=== PATIENT | male | born 1945 | race Caucasian/White ===

== ENCOUNTER → 2018-01-27 09:36 | Outpatient (CLI) | payer MEDICARE, OTHER, SELFPAY | PROVIDERS: PCP Family Medicine; Visit Provider Urology | DX: R68.89 Other general symptoms and signs (principal); Z12.5 Encounter for screening for malignant neoplasm of prostate | CPT/HCPCS: 36415; 84153 ==

== ENCOUNTER → 2018-10-27 09:23 | Outpatient (CLI) | payer MEDICARE, OTHER, SELFPAY ==
[2018-10-27 10:37] LABS: Add Manual Diff / Slide Review NO; Basophils Absolute Auto 0 /uL (0-100); Basophils Percent Auto 0.3 % (0-2); Eosinophils Absolute Auto 100 /uL (0-450); Eosinophils Percent Auto 1.3 % (2-4); Hematocrit 45.6 % (41-53); Lymphocytes Absolute Auto 1700 /uL (1100-4500); Lymphocytes Percent Auto 17.8 % (25-40); Mean Corpuscular HGB Conc 32.9 % (30-36); Mean Corpuscular Hemoglobin 29.9 PG (26-34); Mean Corpuscular Volume 90.9 fL (80-100); Monocytes Absolute Auto 800 /uL (0-900); Monocytes Percent Auto 8.2 % (3-14); Neutrophils Absolute Auto 6800 /uL (1500-7000); Neutrophils Percent Auto 72.4 % (50-75); Platelet Count 206 X10^3/uL (150-400); Red Blood Cell Count 5.02 X10^6/uL (4.5-5.9); Red Cell Distribution Width 13.3 % (11.6-14.8); White Blood Cell Count 9.3 X10^3/uL (4.5-11.0)
[2018-10-27 11:23] LABS: Alanine Aminotransferase 15 IU/L (21-72); Albumin 4.2 g/dL (3.5-5.0); Albumin Globulin Ratio 1.2 (1.0-2.8); Alkaline Phosphatase 79 U/L (38-126); Aspartate Aminotransferase 21 IU/L (17-59); BUN Creatinine Ratio 18.8 (6-22); Bilirubin Total 0.6 mg/dL (0.2-1.3); Blood Urea Nitrogen 15 mg/dL (9-20); Calcium 9.3 mg/dL (8.4-10.2); Carbon Dioxide 29 mmol/L (22-32); Chloride 100 mmol/L (98-107); Cholesterol 234 mg/dL (140-199); Estimated Glomerular Filt Rate > 60.0 mL/min (>60); Globulin 3.4 g/dL (1.7-4.1); Glucose 90 mg/dL (80-110); HDL Cholesterol 48 mg/dL (40-60); HEMOLYSIS < 15 (0-50); LDL Cholesterol Calculated 156 mg/dL (<100); Potassium 4.1 mmol/L (3.4-5.1); Sodium 139 mmol/L (137-145); Total Protein 7.6 g/dL (6.3-8.2); Triglycerides 149 mg/dL (35-150)
[2018-10-27 11:52] LABS: Thyroid Stimulating Hormone 4.44 uIU/mL (0.47-4.68)
== END ==
PROVIDERS: PCP Family Medicine; Visit Provider Internal Medicine Cardiovascular Disease
DX: I48.91 Unspecified atrial fibrillation (principal)
CPT/HCPCS: 36415; 80053; 80061; 84443; 85025

== ENCOUNTER → 2019-02-16 09:41 | Outpatient (CLI) | payer MEDICARE, OTHER, SELFPAY ==
[2019-02-16 11:16] LABS: Prostate Specific Antigen 5.29 ng/mL (0.10-4.00)
== END ==
PROVIDERS: PCP Family Medicine; Visit Provider Urology
DX: R97.20 Elevated prostate specific antigen [PSA] (principal)
CPT/HCPCS: 36415; 84153

== ENCOUNTER → 2019-08-21 12:36 | Outpatient (CLI) | payer MEDICARE, OTHER, SELFPAY ==
[2019-08-21 14:16] LABS: Add Manual Diff / Slide Review NO; Basophils Absolute Auto 0 /uL (0-100); Basophils Percent Auto 0.6 % (0-2); Eosinophils Absolute Auto 100 /uL (0-450); Eosinophils Percent Auto 1.5 % (2-4); Hematocrit 46.7 % (41-53); Hemoglobin 15.7 g/dL (13.5-17.5); Lymphocytes Absolute Auto 1800 /uL (1100-4500); Lymphocytes Percent Auto 23.6 % (25-40); Mean Corpuscular HGB Conc 33.6 % (30-36); Mean Corpuscular Hemoglobin 30.4 PG (26-34); Mean Corpuscular Volume 90.4 fL (80-100); Monocytes Absolute Auto 500 /uL (0-900); Monocytes Percent Auto 6.2 % (3-14); Neutrophils Absolute Auto 5200 /uL (1500-7000); Neutrophils Percent Auto 68.1 % (50-75); Platelet Count 223 X10^3/uL (150-400); Red Blood Cell Count 5.16 X10^6/uL (4.5-5.9); Red Cell Distribution Width 13.3 % (11.6-14.8); White Blood Cell Count 7.6 X10^3/uL (4.5-11.0)
[2019-08-21 14:28] LABS: Alanine Aminotransferase 14 IU/L (<50); Albumin 4.2 g/dL (3.5-5.0); Albumin Globulin Ratio 1.2 (1.0-2.8); Alkaline Phosphatase 84 U/L (38-126); Aspartate Aminotransferase 23 IU/L (17-59); BUN Creatinine Ratio 16.7 (6-22); Bilirubin Total 0.5 mg/dL (0.2-1.3); Blood Urea Nitrogen 15 mg/dL (9-20); Calcium 9.8 mg/dL (8.4-10.2); Carbon Dioxide 30 mmol/L (22-32); Chloride 101 mmol/L (98-107); Estimated Glomerular Filt Rate > 60.0 mL/min (>60); Globulin 3.4 g/dL (1.7-4.1); Glucose 97 mg/dL (80-110); HEMOLYSIS < 15 (0-50); Potassium 4.3 mmol/L (3.4-5.1); Sodium 140 mmol/L (137-145); Total Protein 7.6 g/dL (6.3-8.2)
== END ==
PROVIDERS: PCP Family Medicine; Referring Provider Internal Medicine Cardiovascular Disease; Visit Provider Internal Medicine Cardiovascular Disease
DX: I48.21 Permanent atrial fibrillation (principal)
CPT/HCPCS: 36415; 80053; 85025

== ENCOUNTER → 2020-10-29 10:30 | Outpatient (CLI) | payer MEDICARE, OTHER, SELFPAY ==
[2020-10-29 11:04] LABS: Add Manual Diff / Slide Review NO; Basophils Absolute Auto 0 /uL (0-100); Basophils Percent Auto 0.4 % (0-2); Eosinophils Absolute Auto 200 /uL (0-450); Hematocrit 44.8 % (41-53); Hemoglobin 15.1 g/dL (13.5-17.5); Lymphocytes Absolute Auto 1800 /uL (1100-4500); Lymphocytes Percent Auto 21.4 % (25-40); Mean Corpuscular HGB Conc 33.8 % (30-36); Mean Corpuscular Volume 91.8 fL (80-100); Monocytes Absolute Auto 600 /uL (0-900); Monocytes Percent Auto 7.8 % (3-14); Neutrophils Absolute Auto 5600 /uL (1500-7000); Neutrophils Percent Auto 68.4 % (50-75); Platelet Count 195 X10^3/uL (150-400); Red Blood Cell Count 4.88 X10^6/uL (4.5-5.9); White Blood Cell Count 8.2 X10^3/uL (4.5-11.0)
[2020-10-29 11:25] LABS: Alanine Aminotransferase 14 IU/L (<50); Albumin 3.8 g/dL (3.5-5.0); Albumin Globulin Ratio 1.2 (1.0-2.8); Alkaline Phosphatase 79 U/L (38-126); Aspartate Aminotransferase 23 IU/L (17-59); BUN Creatinine Ratio 23.4 (6-22); Bilirubin Total 0.4 mg/dL (0.2-1.3); Blood Urea Nitrogen 18 mg/dL (9-20); Calcium 9.5 mg/dL (8.4-10.2); Carbon Dioxide 30 mmol/L (22-32); Chloride 102 mmol/L (98-107); Estimated Glomerular Filt Rate > 60.0 mL/min (>60); Globulin 3.2 g/dL (1.7-4.1); Glucose 93 mg/dL (80-110); HEMOLYSIS < 15 (0-50); Potassium 4.3 mmol/L (3.4-5.1); Sodium 137 mmol/L (137-145)
== END ==
PROVIDERS: PCP Internal Medicine; Referring Provider Internal Medicine Cardiovascular Disease; Visit Provider Internal Medicine Cardiovascular Disease
DX: I48.21 Permanent atrial fibrillation (principal)
CPT/HCPCS: 36415; 80053; 85025

== ENCOUNTER → 2021-04-09 12:50 | Outpatient (CLI) | payer MEDICARE, OTHER, SELFPAY ==
--- NOTE | 2021-04-09 | DI.RAD.S_ITS ---
PROCEDURE: XR CHEST 2V INDICATIONS: SHORTNESS OF BREATH TECHNIQUE: 2 views of the chest were acquired. COMPARISON: None. FINDINGS: Surgical changes and devices: None. Lungs and pleura: No consolidation, pleural effusions or pneumothorax. Reduced lung volumes with prominence of the bronchovascular markings. Mediastinum: Mediastinal contours are normal. Heart size is normal. Bones and chest wall: No suspicious bony abnormalities. Soft tissues appear unremarkable. IMPRESSION: No acute cardiopulmonary abnormality. Dictated by: Lucas Genao M.D. on 04/09/2021 at 13:51 Approved by: Lucas Genao M.D. on 04/09/2021 at 13:51
== END ==
PROVIDERS: PCP Internal Medicine; Referring Provider Internal Medicine; Visit Provider Internal Medicine
DX: R06.02 Shortness of breath (principal)
CPT/HCPCS: 71046

== ENCOUNTER → 2021-04-10 07:29 | Outpatient (CLI) | payer MEDICARE, OTHER, SELFPAY ==
--- NOTE | 2021-04-10 | DI.ECHO.S_ITS ---
[place] [facility] +---------+ : : [address] : [address] : : : : [id number] : : : : Phone: [phone] Echocardiogram Report + + :Name: JAYY STEWART Study Date: 04/10/2021 Height: 70 in : :[facility] ReadingLocation: Weight: 190 lb : : Gender: Male BSA: 2.0 m2 : :: 1945 Age: 75 yrs BP: 141/67 mmHg: :Reason For Study: CARDIOMYOPATHY : :Ordering Physician: GINGER : :CAR Performed By: Maru Reyes : :Referring: CAR MILES : + + Interpretation Summary The left ventricle is normal in size and wall thickness. Left ventricular systolic function appears normal without focal wall motion abnormalities. The ejection fraction is estimated to be 55-60%. Diastolic function could not be accurately assessed due to atrial fibrillation. The right ventricle is mildly dilated. Right ventricular systolic function is at the lower limits of normal. Right ventricular systolic pressure is estimated to be 28 mmHg plus the clinically estimated CVP which cannot be estimated on this exam. The left atrium is severely dilated. The right atrium is mild to moderately dilated. There is moderate mitral regurgitation. There is mild tricuspid regurgitation. The ascending aorta is mildly enlarged. Procedure: A two-dimensional transthoracic echocardiogram with color flow and Doppler was performed. The study quality was technically adequate. There is no prior echocardiogram noted for this patient. The patient was in atrial fibrillation with heart rates between 54-76 bpm during the exam. Left Ventricle: The left ventricle is normal in size and wall thickness. Left ventricular systolic function appears normal without focal wall motion abnormalities. The ejection fraction is estimated to be 55-60%. Diastolic function could not be accurately assessed due to atrial fibrillation. Right Ventricle: The right ventricle is mildly dilated. Right ventricular systolic function is at the lower limits of normal. Atria: The left atrium is severely dilated. The right atrium is mild to moderately dilated. There is no Doppler evidence for an interatrial shunt. Mitral Valve: The mitral valve leaflets are mildly calcified. There is moderate mitral regurgitation. Aortic Valve: The aortic valve is trileaflet. The aortic valve opens well. There is no aortic valve stenosis. No aortic regurgitation is present. Tricuspid Valve: The tricuspid valve is normal. There is mild tricuspid regurgitation. Right ventricular systolic pressure is estimated to be 28 mmHg plus the clinically estimated CVP which cannot be estimated on this exam. Pulmonic Valve: The pulmonic valve leaflets are thin and pliable; valve motion is normal. There is trace pulmonic regurgitation. Great Vessels: The aortic root is normal size. The ascending aorta is mildly enlarged. The aortic arch is at the upper limits of normal in size. The inferior vena cava was not well visualized. Pericardium/ Pleura There is no pericardial effusion. There is no pleural effusion. MMode/2D Measurements & Calculations LVIDd: 5.2 cm LVOT diam: 2.1 cm LVIDs: 3.8 cm Ao root diam: 3.4 cm FS: 27.6 % asc Aorta Diam: 3.5 cm IVSd: 0.81 cm Ao Arch Diam (Prox Trans): 3.3 cm LVPWd: 0.74 cm LV baker. diameter/BSA (cm/m^2): 2.6 LV sys. diameter/BSA (cm/m^2): 1.9 LA A2 area: 36.7 cm2 RA long axis: 6.4 cm LA A4 area: 38.3 cm2 RA area: 24.5 cm2 LA length (vol): 7.2 cm RA vol: 80.0 ml LA vol: 165.1 ml RA : 39.2 ml/m2 LA vol index: 80.8 ml/m2 RVD1 (basal): 4.3 cm TAPSE: 1.6 cm Doppler Measurements & Calculations Ao V2 max: 124.5 cm/sec LVOT Max Jose: 84.8 cm/sec Ao V2 mean: 87.1 cm/sec LV V1 max P.9 mmHg Ao max P.2 mmHg LV V1 VTI: 17.9 cm Ao mean P.4 mmHg GRETCHEN(I,D): 2.5 cm2 Ao V2 VTI: 25.4 cm GRETCHEN(V,D): 2.4 cm2 sev ratio: 0.71 GRETCHEN indexed to BSA (cm^2/m^2): 1.2 MV E max jose: 104.3 cm/sec TR max jose: 264.6 cm/sec MV A max jose: 1.4 cm/sec TR max P.0 mmHg MV E/A: 76.9 PA V2 max: 113.7 cm/sec Med Peak E' Jose: 9.6 cm/sec PA V2 mean: 74.0 cm/sec E/E' med: 10.9 PA mean P.5 mmHg Lat Peak E' Jose: 11.1 cm/sec PA pr(Accel): 43.0 mmHg E/E' lat: 9.4 E/e' average: 10.1 MV dec time: 0.19 sec MR ERO: 0.19 cm2 MR PISA: 2.4 cm2 SV(LVOT): 62.6 ml MR flow rate: 88.0 cm3/sec MR PISA radius: 0.62 cm Reading Physician:05:34 PM
== END ==
PROVIDERS: PCP Internal Medicine; Referring Provider Internal Medicine; Visit Provider Internal Medicine
DX: I08.1 Rheumatic disorders of both mitral and tricuspid valves (principal); I42.9 Cardiomyopathy, unspecified; I77.89 Other specified disorders of arteries and arterioles
CPT/HCPCS: 93306

== ENCOUNTER → 2021-04-24 09:40 | Outpatient (CLI) | payer MEDICARE, OTHER, SELFPAY ==
--- NOTE | 2021-04-24 | DI.US.S_ITS ---
PROCEDURE: US ABD AORTA ANEURYSM SCREEN INDICATIONS: AAA SCREEN TECHNIQUE: Real time scanning was performed of the aorta and iliac arteries, with image documentation. COMPARISON: None. FINDINGS: Aorta: Proximal aorta is obscured by bowel gas. Mid-aorta measures 1.7 cm. Distal aortic diameter is 1.5 cm. Iliac arteries: Right common iliac artery measures 1.1 cm. Left common iliac artery measures 1 cm. IMPRESSION: No sonographic evidence of aortic aneurysmal dilatation. Dictated by: Lucas Genao M.D. on 04/24/2021 at 10:33 Approved by: Lucas Genao M.D. on 04/24/2021 at 10:34
== END ==
PROVIDERS: PCP Internal Medicine; Referring Provider Internal Medicine; Visit Provider Internal Medicine
DX: Z13.6 Encounter for screening for cardiovascular disorders (principal)
CPT/HCPCS: 76706

== ENCOUNTER 2021-08-11 15:16 | Emergency (ER) | payer MEDICARE, OTHER, SELFPAY ==
[2021-08-11] VITALS (12 sets, daily range): BP systolic 118–151; BP diastolic 58–74; PULSE 31–36; RESP 16–30; TEMP 37.1; O2SAT 96–98
--- NOTE | 2021-08-11 15:40 | DI.RAD.S_ITS ---
PROCEDURE: XR CHEST 1V INDICATIONS: chest pain TECHNIQUE: One view of the chest was acquired. COMPARISON: [facility], CR, XR CHEST 2V, 04/09/2021, 12:49. FINDINGS: Surgical changes and devices: None. Lungs and pleura: Lungs are clear. No pleural effusions or pneumothorax. Mediastinum: Mediastinal contours appear normal. Heart is enlarged. Bones and chest wall: No suspicious bony lesions. Overlying soft tissues appear unremarkable. IMPRESSION: No acute cardiopulmonary disease process. Dictated by: Mary Kate Pope MD, PhD on 08/11/2021 at 16:07 Approved by: Mary Kate Pope MD, PhD on 08/11/2021 at 16:08
[2021-08-11 15:58] LABS: Add Manual Diff / Slide Review NO; Basophils Absolute Auto 100 /uL (0-100); Basophils Percent Auto 0.7 % (0-2); Eosinophils Absolute Auto 100 /uL (0-450); Eosinophils Percent Auto 0.6 % (2-4); Hemoglobin 13.5 g/dL (13.5-17.5); Lymphocytes Absolute Auto 1500 /uL (1100-4500); Lymphocytes Percent Auto 13.9 % (25-40); Mean Corpuscular Hemoglobin 30.2 PG (26-34); Mean Corpuscular Volume 91.4 fL (80-100); Monocytes Absolute Auto 700 /uL (0-900); Monocytes Percent Auto 6.6 % (3-14); Neutrophils Absolute Auto 8200 /uL (1500-7000); Neutrophils Percent Auto 78.2 % (50-75); Platelet Count 190 X10^3/uL (150-400); Red Blood Cell Count 4.49 X10^6/uL (4.5-5.9); Red Cell Distribution Width 13.7 % (11.6-14.8); White Blood Cell Count 10.4 X10^3/uL (4.5-11.0)
--- NOTE | 2021-08-11 16:00 | ED_ITS ---
HPI - Arrhythmia/Palpitations General Chief Complaint: Arrhythmia/Palpitations Stated Complaint: Sent from SUSAN Morillo Time Seen by Provider: 08/11/21 15:43 Source: patient Mode of arrival: Ambulatory Limitations: no limitations History of Present Illness HPI narrative: Patient is a 76-year-old male. Had initial visit today with Cardiology here at the facility and was found that the patient is in AFib with a slow ventricular response. Apparently the patient has a history of permanent AFib. Is not currently on digoxin nor beta-blockers or calcium channel blockers. He is not on anticoagulation. He has been on these medications in the past but has not tolerated them in many them he has quit on his own. The concern from Cardiology earlier today was that he was AFib with a ventricular rate in the 30s and a narrow complex QRS and concern for third-degree heart block. Patient states that over the past several weeks to months he has had increasing dyspnea on exertion and lower extremity swelling specifically right more than left. This is not new for him. No headaches. No cough. No fevers. Was concerned by Cardiology that the patient had CHF although I do not specifically have a diagnosis of this in the patient does not remember ever being diagnosed with this. Related Data Home Medications Medication Instructions Recorded Confirmed aspirin 81 mg tablet,delayed 81 mg PO QDAY #0 11/02/16 release digoxin 250 mcg (0.25 mg) tablet 0.25 mg PO QDAY #0 11/02/16 (Lanoxin) Previous Rx's Medication Instructions Recorded sulfamethoxazole 800 1 tab PO BID #14 tab 11/04/16 mg-trimethoprim 160 mg tablet Allergies Allergy/AdvReac Type Severity Reaction Status Date / Time No Known Drug Allergies Allergy Verified 08/11/21 18:56 Review of Systems Constitutional Constitutional: Denies frequent falls and Denies headache(s) ENT Ears, Nose, Mouth, and Throat: Denies headache(s) Cardiovascular Cardiovascular: Denies chest pain, Denies chest pain with activity, Reports lightheadedness and Reports dyspnea on exertion Respiratory Respiratory: Reports dyspnea on exertion Gastrointestinal Gastrointestinal: Denies abdominal pain, Denies nausea and Denies vomiting Genitourinary Genitourinary: Reports system reviewed and no additional complaints, except as documented Musculoskeletal Musculoskeletal: Reports system reviewed and no additional complaints, except as documented Integumentary/Breasts Skin/Breast: Reports system reviewed and no additional complaints, except as documented Neurologic Neurologic: Reports system reviewed and no additional complaints, except as do cumented, Denies frequent falls and Denies headache(s) Hematologic/Lymphatic On Anticoagulants: No Patient History Medical History Atrial fibrillation Social History lives independently: Yes Exam Initial Vital Signs Initial Vital Signs: Vital Signs Temperature 98.7 F 08/11/21 15:35 Pulse Rate 36 L 08/11/21 15:35 Respiratory Rate 18 08/11/21 15:35 Blood Pressure 134/74 08/11/21 15:35 Pulse Oximetry 98 08/11/21 15:35 Const General: cooperative and comfortable HENMT Head: normal to inspection and normocephalic Eyes General: appearance normal, both eyes and all related structures Neck Neck: normal visual inspection Chest Chest: normal inspection of the chest Resp Effort & Inspection: normal respiratory effort Auscultation: clear to auscultation bilaterally, no crackles and no rhonchi Cardio Rate: bradycardic Rhythm: abnormal rhythm GI Inspection: normal to inspection, no edema and non-distended Skin General: no rashes or lesions noted Neuro General: patient alert, patient awake, patient oriented x3 and moves all extre mities Cranial Nerves: CN's II-XI intact bilaterally Cognition: normal cognition Speech: speech normal Motor: muscle tone normal throughout Extrem General: No cyanosis and edema (Right greater than left) Psych Appearance: grossly normal and well kempt Scores GCS Brandon coma scale eye opening: Spontaneous Brandon coma scale verbal response: Orientated Brandon coma scale motor response: Obey commands [place] coma scale total score: 15 Course Orders Ordered: ED Orders 08/11/21 15:40 XR chest 1V Stat Complete Blood Count AUTO DIFF Stat Comprehensive Metabolic Panel Stat Digoxin Stat Lipase Stat Magnesium Stat NT-proBNP (BNP-Adult 18+) Stat Partial Thromboplastin Time Stat Prothrombin Time INR Stat Troponin & CK Cardiac Panel Stat 08/11/21 15:45 EKG-12 Lead Stat 08/11/21 15:56 COVID19 -Nasal swab/Pre-Proc Stat Vital Signs Vital signs: Vital Signs - 8 hr 08/11/21 15:35 08/11/21 16:00 08/11/21 16:30 Temperature 98.7 F Pulse Rate 36 L 35 L 33 L Respiratory Rate 18 22 Blood Pressure 134/74 Pulse Oximetry 98 97 96 08/11/21 16:51 08/11/21 17:00 08/11/21 17:30 Temperature Pulse Rate 32 L 32 L 32 L Respiratory Rate 25 H 24 26 H Blood Pressure 122/58 L 123/58 L Pulse Oximetry 97 96 96 08/11/21 17:31 08/11/21 18:00 08/11/21 18:01 Temperature Pulse Rate 32 L 32 L 32 L Respiratory Rate 30 H 18 22 Blood Pressure 118/60 151/62 H Pulse Oximetry 96 96 96 08/11/21 18:30 Temperature Pulse Rate 32 L Respiratory Rate 20 Blood Pressure Pulse Oximetry 97 MDM - Arrhythmia/Palpitations Medical Records Attestation: I reviewed the patient's medical records. Lab Data Attestation: I reviewed the patient's lab results. Result diagrams: 08/11/21 15:40 08/11/21 15:40 Labs: Lab Results 08/11/21 08/11/21 08/11/21 Range/Units 15:40 15:40 15:40 WBC 10.4 (4.5-11.0) X10^3/uL RBC 4.49 L (4.5-5.9) X10^6/uL Hgb 13.5 (13.5-17.5) g/dL Hct 41.0 (41-53) % MCV 91.4 (80-100) fL MCH 30.2 (26-34) PG MCHC 33.0 (30-36) % RDW 13.7 (11.6-14.8) % Plt Count 190 (150-400) X10^3/uL Neut % (Auto) 78.2 H (50-75) % Lymph % (Auto) 13.9 L (25-40) % [place] % (Auto) 6.6 (3-14) % Eos % (Auto) 0.6 L (2-4) % Baso % (Auto) 0.7 (0-2) % Neut # (Auto) 8200 H (1576-8534) /uL Lymph # (Auto) 1500 (1890-3811) /uL [place] # (Auto) 700 (0-900) /uL Eos # (Auto) 100 (0-450) /uL Baso # (Auto) 100 (0-100) /uL PT (10.1-12.7) SECONDS INR (0.9-1.3) APTT (26.4-36.2) SECONDS Sodium 137 (137-145) mmol/L Potassium 3.6 (3.4-5.1) mmol/L Chloride 102 (98-107) mmol/L Carbon Dioxide 29 (22-32) mmol/L BUN 18 (9-20) mg/dL Creatinine 0.96 (0.66-1.25) mg/dL Estimated GFR > 60.0 (>60) mL/min BUN/Creatinine Ratio 18.8 (6-22) Glucose 117 H (80-110) mg/dL Calcium 9.3 (8.4-10.2) mg/dL Magnesium 2.0 (1.6-2.3) mg/dL Total Bilirubin 0.6 (0.2-1.3) mg/dL AST 23 (17-59) IU/L ALT 17 (<50) IU/L Alkaline Phosphatase 70 (38-126) U/L Total Creatine Kinase 67 (55-170) U/L CK-MB (CK-2) TNP CK-MB (CK-2) Rel Index TNP Troponin I < 0.012 (0.01-0.034) ng/mL Total Protein 7.6 (6.3-8.2) g/dL Albumin 4.2 (3.5-5.0) g/dL Globulin 3.4 (1.7-4.1) g/dL Albumin/Globulin Ratio 1.2 (1.0-2.8) Lipase 59 (23-300) U/L Digoxin < 0.4 L (0.8-2.0) ng/mL SARS-CoV-2 (PCR) (Negative) 08/11/21 08/11/21 Range/Units 15:40 15:56 WBC (4.5-11.0) X10^3/uL RBC (4.5-5.9) X10^6/uL Hgb (13.5-17.5) g/dL Hct (41-53) % MCV (80-100) fL MCH (26-34) PG MCHC (30-36) % RDW (11.6-14.8) % Plt Count (150-400) X10^3/uL Neut % (Auto) (50-75) % Lymph % (Auto) (25-40) % [place] % (Auto) (3-14) % Eos % (Auto) (2-4) % Baso % (Auto) (0-2) % Neut # (Auto) (4709-0404) /uL Lymph # (Auto) (5520-7371) /uL [place] # (Auto) (0-900) /uL Eos # (Auto) (0-450) /uL Baso # (Auto) (0-100) /uL PT 13.3 H (10.1-12.7) SECONDS INR 1.2 (0.9-1.3) APTT 31 (26.4-36.2) SECONDS Sodium (137-145) mmol/L Potassium (3.4-5.1) mmol/L Chloride (98-107) mmol/L Carbon Dioxide (22-32) mmol/L BUN (9-20) mg/dL Creatinine (0.66-1.25) mg/dL Estimated GFR (>60) mL/min BUN/Creatinine Ratio (6-22) Glucose (80-110) mg/dL Calcium (8.4-10.2) mg/dL Magnesium (1.6-2.3) mg/dL Total Bilirubin (0.2-1.3) mg/dL AST (17-59) IU/L ALT (<50) IU/L Alkaline Phosphatase (38-126) U/L Total Creatine Kinase (55-170) U/L CK-MB (CK-2) CK-MB (CK-2) Rel Index Troponin I (0.01-0.034) ng/mL Total Protein (6.3-8.2) g/dL Albumin (3.5-5.0) g/dL Globulin (1.7-4.1) g/dL Albumin/Globulin Ratio (1.0-2.8) Lipase (23-300) U/L Digoxin (0.8-2.0) ng/mL SARS-CoV-2 (PCR) Negative (Negative) Imaging Data Chest x-ray: Radiologist's Impresson: [address] [address] XRay Report Signed Patient: Ammon Saenz MR#: [id number] : 1945 Acct:[id number] Age/Sex: 76 / M Date of Service: 08/11/21 Loc: ED Accession Number: [id number] ?? Procedure: XR chest 1V Ordering Provider: Rober Jones D.O. PROCEDURE:? XR CHEST 1V ? INDICATIONS:? chest pain ? TECHNIQUE:? One view of the chest was acquired.? ? COMPARISON:? [facility], CR, XR CHEST 2V, 04/09/2021, 12:49. ? FINDINGS:? ? Surgical changes and devices:? None.? ? Lungs and pleura:? Lungs are clear.? No pleural effusions or pneumothorax.? ? Mediastinum:? Mediastinal contours appear normal.? Heart is enlarged. ? Bones and chest wall:? No suspicious bony lesions.? Overlying soft tissues appear unremarkable.? ? IMPRESSION:? No acute cardiopulmonary disease process. ? ? Dictated by: Mary Kate Pope MD, PhD on 08/11/2021 at 16:07 ? ? Approved by: Mary Kate Pope MD, PhD on 08/11/2021 at 16:08?? ECG Data Attestation: I personally reviewed and interpreted this ECG as follows: Interpretation: Atrial fibrillation Ventricular rate of 36 Narrow complex QRS of with your duration 82 milliseconds Normal QTC Nonspecific ST T wave changes MDM Narrative Medical decision making narrative: Patient has had dyspnea on exertion for the past several weeks to months and also worsening swelling of his lower extremities on the past weeks to months. No chest pain. He is in AFib on his EKG with a slow ventricular response. Not on digoxin or cristhian blocking agents. Patient not clinically in heart failure. Chest x-ray is unremarkable. Patient is mentating fine and has a normal blood pressures we will hold on atropine or transcutaneous pacing. Patient does required transfer to a facility that has cardiology/pacemaker capability. Discussed the case with with Cardiology [facility] who agrees to see the patient upon arrival I then discussed the case with Dr. Alvarado with Internal Medicine at [facility] who accepts the patient in transfer. Did discuss the need for transfer with the patient and his ex- who is at bedside. They both expressed understanding and agreement. Discharge Plan Departure Patient Disposition: [facility] Clinical Impression: Atrial fibrillation, Heart block Prescriptions: No Action digoxin [Lanoxin] 250 MCG tablet 0.25 mg PO QDAY Qty: 0 0RF aspirin 81 MG tablet,delayed release (DR/EC) 81 mg PO QDAY Qty: 0 0RF sulfamethoxazole-trimethoprim 800 MG/160 MG tablet 1 tab PO BID Qty: 14 0RF Referrals: Maribel Franco MD [Primary Care Provider] -
[2021-08-11 16:05] LABS: INR 1.2 (0.9-1.3); Prothrombin Time 13.3 SECONDS (10.1-12.7)
[2021-08-11 16:07] LABS: PTT Partial Thromboplastin Tim 31 SECONDS (26.4-36.2)
[2021-08-11 16:09] LABS: Alanine Aminotransferase 17 IU/L (<50); Albumin 4.2 g/dL (3.5-5.0); Albumin Globulin Ratio 1.2 (1.0-2.8); Alkaline Phosphatase 70 U/L (38-126); Aspartate Aminotransferase 23 IU/L (17-59); BUN Creatinine Ratio 18.8 (6-22); Bilirubin Total 0.6 mg/dL (0.2-1.3); Blood Urea Nitrogen 18 mg/dL (9-20); Calcium 9.3 mg/dL (8.4-10.2); Carbon Dioxide 29 mmol/L (22-32); Chloride 102 mmol/L (98-107); Creatine Kinase 67 U/L (55-170); Estimated Glomerular Filt Rate > 60.0 mL/min (>60); Globulin 3.4 g/dL (1.7-4.1); Glucose 117 mg/dL (80-110); HEMOLYSIS < 15 (0-50); Lipase 59 U/L (23-300); Potassium 3.6 mmol/L (3.4-5.1); Sodium 137 mmol/L (137-145); Total Protein 7.6 g/dL (6.3-8.2)
[2021-08-11 16:21] LABS: Troponin I < 0.012 ng/mL (0.01-0.034)
[2021-08-11 16:24] LABS: COVID19 -Nasal RAPID Negative (Negative)
--- NOTE | 2021-08-11 16:24 | PC.NURSE ---
Patient reports symptoms since november. Has been waiting since Apr for appointment with cardiology. patient seen by Dr Almazan today and sent to ER for CHF, third degree heart block. Reports increase SOB with excertion. Some increase swelling in lower extremities, worse on right than left but has always had increase swelling on right verses left.
[2021-08-11 16:27] LABS: Digoxin < 0.4 ng/mL (0.8-2.0)
--- NOTE | 2021-08-11 17:57 | PC.NURSE ---
Discussed with patient and family (Kizzy) plan and awaiting of bed at higher level of care facility.
--- NOTE | 2021-08-11 18:57 | PC.NURSE ---
Report provided to [facility] PERRY Philippe in transfer center. ETA AMB [id number]
[2021-08-11 19:07] LABS: NT-proBNP (BNP-Adult 18+) 3470 pg/mL (<450)
== END 2021-08-11 19:30 | disposition short-term general hospital (02) ==
PROVIDERS: Emergency Provider Emergency Medicine; PCP Internal Medicine; Referring Provider Internal Medicine Cardiovascular Disease
DX: I48.91 Unspecified atrial fibrillation (principal); I45.9 Conduction disorder, unspecified; Z20.822 Contact with and (suspected) exposure to COVID-19
CPT/HCPCS: 36415; 71045; 80053; 80162; 82550; 83690; 83735; 83880; 84484; 85025; 85610; 85730; 87635; 93005; 99284; 99285; C9803

== ENCOUNTER → 2021-09-22 09:53 | Outpatient (CLI) | payer MEDICARE, OTHER, SELFPAY ==
[2021-09-22 11:31] LABS: Prostate Specific Antigen 6.52 ng/mL (0.10-4.00)
== END ==
PROVIDERS: PCP Internal Medicine; Referring Provider Urology; Visit Provider Urology
DX: R97.20 Elevated prostate specific antigen [PSA] (principal)
CPT/HCPCS: 36415; 84153

== ENCOUNTER → 2021-11-07 11:14 | Outpatient (CLI) | payer MEDICARE, OTHER, SELFPAY ==
[2021-11-07 12:36] LABS: COVID19 -Nasal RAPID Negative (Negative)
== END ==
PROVIDERS: PCP Internal Medicine; Visit Provider Nurse Practitioner Family
DX: Z20.822 Contact with and (suspected) exposure to COVID-19 (principal)
CPT/HCPCS: 87635; C9803

== ENCOUNTER → 2021-11-10 09:38 | Outpatient (CLI) | payer MEDICARE, OTHER, SELFPAY ==
--- NOTE | 2021-11-10 15:29 | PM.TREADMILL ---
Cardiac Stress Test Report Referral & Results Date Patient Seen: 11/10/21 Time Patient Seen: 15:29 Requesting provider: Emily Morillo Indication: Paroxysmal atrial fibrillation Rest ECG: V paced Procedure Note: After Lexiscan injection, had minimal dyspnea and no chest discomfort No significant ST changes after Lexiscan injection No ectopy Impression: Normal Lexiscan stress test Nuclear images pending Please note: Actual ECG tracings can be found in the PACS system.
--- NOTE | 2021-11-10 19:10 | DI.NM.S_ITS ---
DATE OF SERVICE: 11/10/2021 PROCEDURE PERFORMED: Pharmacologic vasodilator stress and rest myocardial perfusion imaging with gating to assess ejection fraction and regional wall motion. ORDERING PROVIDER: Dr. Emily Morillo. INDICATIONS: The patient is a 76-year-old male with chronic atrial fibrillation, status post recent pacemaker implantation. CARDIAC STRESS: Per protocol, 0.4 mg of regadenoson was infused with mild dyspnea, but no chest discomfort. He had a normal hemodynamic response. His resting ECG shows atrial fibrillation with ventricular pacing with associated ST- segment abnormalities. There are no obvious ST-segment shifts or arrhythmias with stress. Per protocol, 25.9 millicuries of technetium-99m Myoview was injected and he was imaged 20 minutes later using a gated SPECT acquisition protocol. Earlier in the day while at rest, he had been injected with 12.3 millicuries of technetium- 99m Myoview was imaged 20 minutes later, again using a gated SPECT acquisition protocol. FINDINGS: 1. Raw data: There is fair myocardial tracer uptake without significant motion artifact. Lung/heart ratio is normal at 0.29 with a normal TID ratio of 0.94. The patient was unable to lie prone for prone imaging. 2. Quantitated gated SPECT: Post-stress ejection fraction shows an ejection fraction of 78% without any focal wall motion abnormality. Resting ejection fraction of 74% with an end-diastolic volume of 132 mL. 3. Myocardial perfusion imaging: Post-stress supine images shows a normal myocardial perfusion pattern without any perfusion defects and no areas of significant improvement on the resting images. IMPRESSION: 1. Normal myocardial perfusion study. 2. No evidence of myocardial ischemia or previous myocardial infarction. 3. Normal left ventricular systolic function without focal wall motion abnormality. 4. No angina with pharmacologic vasodilator stress. He has underlying atrial fibrillation with a ventricular pacemaker that precludes ST-segment analysis. LettyCapriceAmmon - ZINA/suresh/kaci doc#: [id number]/job#: [id number] dd: 11/10/2021 16:37:00 dt: 11/10/2021 18:18:00 DICTATING MD/COPIES TO: Derick Eason MD; Emily Morillo MD COPIES MNE: ALE;
== END ==
PROVIDERS: PCP Internal Medicine; Referring Provider Internal Medicine Cardiovascular Disease; Visit Provider Internal Medicine Cardiovascular Disease
DX: I48.0 Paroxysmal atrial fibrillation (principal); I48.20 Chronic atrial fibrillation, unspecified; I44.2 Atrioventricular block, complete; Z95.0 Presence of cardiac pacemaker; I44.1 Atrioventricular block, second degree
CPT/HCPCS: 78452; 93017; A9502; J2785